=== PATIENT | male | born 1970 | race Caucasian/White ===

== ENCOUNTER 2016-11-15 11:27 | Inpatient (IN) | payer OTHER ==
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
[2016-11-15] MEDS ORDERED: HYDROmorphONE/DILAUDID 1 MG/ML SYR IVP ONE ×4 (12:13→19:38)
[2016-11-15 13:12] LABS: % IMMATURE GRANULYOCYTES 0.3 % (0.0-1.1); ABSOLUTE IMMATURE GRANULOCYTES 0.02 10^3/uL (0.00-0.10); ADD DIFF? NO; ADD MORPH? NO; ADD SCAN? NO; ATYPICAL LYMPHOCYTE FLAG 0 (0-99); FRAGMENT RBC FLAG 0 (0-99); HEMATOCRIT 44.8 % (40.0-51.0); HEMOGLOBIN 14.6 g/dL (13.7-17.5); LEFT SHIFT FLG 10 (0-99); LIPEMIA HEMOLYSIS FLAG 80 (0-99); MEAN CELL HEMOGLOBIN 30.5 pg (27.9-34.1); MEAN CELL HEMOGLOBIN CONCENTR. 32.6 g/dL (32.4-36.7); MEAN CELL VOLUME 93.5 fL (81.5-99.8); MEAN PLATELET VOLUME 10.6 fL (8.7-11.7); PLATELET CLUMPS FLAG 10 (0-99); PLATELET COUNT 288 10^3/uL (150-400); RED BLOOD CELL COUNT 4.79 10^6/uL (4.40-6.38)
[2016-11-15 13:29] LABS: COLOR YELLOW; LEUKOCYTE ESTERASE,URINE NEGATIVE (NEGATIVE); NITRITE,URINE NEGATIVE (NEGATIVE)
[2016-11-15 14:03] LABS: ANION GAP 10 mEq/L (8-16); CALCIUM 8.5 mg/dL (8.5-10.4); CARBON DIOXIDE 27 mEq/l (22-31); CHLORIDE 100 mEq/L (97-110); CREATININE 0.8 mg/dL (0.7-1.3); GLOMERULAR FILTRATION RATE > 60; GLUCOSE 78 mg/dL (70-100); POTASSIUM 4.3 mEq/L (3.5-5.2); SODIUM 137 mEq/L (134-144)
[2016-11-15] MEDS ORDERED: HYDROmorphONE/DILAUDID 1 MG/ML SYR ONE ×3 (15:54→19:40)
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
[2016-11-15] MEDS ORDERED: LORazepam 2 MG/ML INJ IVP PRN (19:34)
[2016-11-15] MEDS ORDERED: ONDANSETRON 4 MG/2 ML VIAL IVP PRN (19:34)
[2016-11-15] MEDS ORDERED: NALOXONE HCL 0.4 MG/ML INJ IVP PRN (19:34)
[2016-11-15] MEDS ORDERED: ONDANSETRON DISINTEGRATING 4 MG TAB PO PRN (19:34)
[2016-11-15] MEDS ORDERED: CYCLOBENZAPRINE 10 MG TAB ONE (19:40)
[2016-11-15] MEDS: APIXABAN 5 MG TAB PO SCH ×2 (19:53)
[2016-11-15] MEDS: oxyCODONE IR 5 MG TAB PO PRN (20:05)
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
[2016-11-15] MEDS: CYCLOBENZAPRINE 10 MG TAB PO PRN (22:30)
[2016-11-15] MEDS: HYDROmorphONE/DILAUDID 1 MG/ML SYR IVP PRN (22:32)
[2016-11-16] MEDS: oxyCODONE IR 5 MG TAB PO PRN ×6 (03:35→23:03)
[2016-11-16] MEDS: APIXABAN 5 MG TAB PO SCH (08:08)
[2016-11-16] MEDS: CYCLOBENZAPRINE 10 MG TAB PO PRN ×2 (08:08→19:51)
[2016-11-16] MEDS: HYDROmorphONE/DILAUDID 1 MG/ML SYR IVP PRN ×5 (08:24→20:58)
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
[2016-11-16] MEDS ORDERED: DIAZEPAM 10 MG TAB PO ONE (09:37)
[2016-11-16] MEDS ORDERED: BISACODYL 10 MG SUPP PR PRN (09:38)
[2016-11-16] MEDS ORDERED: MAGNESIUM HYDROXIDE 30 ML UDCUP PO PRN (09:38)
[2016-11-16] MEDS ORDERED: POLYETHYLENE GLYCOL 3350 17 GM PKT PO PRN (09:38)
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
[2016-11-16] MEDS ORDERED: DIAZEPAM 5 MG TAB PO ONE (10:00)
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
[2016-11-16] MEDS ORDERED: NS 1,000 ML IV SCH (16:30)
[2016-11-16] MEDS ORDERED: DEXMEDETOMIDINE HCL 200 MCG/2 ML VIAL IV ONE (17:43)
[2016-11-16] MEDS ORDERED: PROPOFOL/EMULSION 500 MG/50 ML BOTTLE IV ONE ×3 (17:44→17:50)
[2016-11-16] MEDS ORDERED: PROPOFOL 200 MG/20 ML VIAL ONE (17:50)
[2016-11-16] MEDS ORDERED: HYDROmorphONE/DILAUDID 1 MG/ML SYR ONE (19:17)
[2016-11-16] MEDS: SENNOSIDES/DOCUSATE SODIUM TAB PO SCH (20:56)
[2016-11-17] MEDS: oxyCODONE IR 5 MG TAB PO PRN ×6 (02:18→21:41)
[2016-11-17] MEDS: APIXABAN 5 MG TAB PO SCH (07:50)
[2016-11-17] MEDS: SENNOSIDES/DOCUSATE SODIUM TAB PO SCH ×2 (07:50→20:43)
[2016-11-17] MEDS ORDERED: NICOTINE 21 MG/24 HR PATCH TD ONE (09:49)
[2016-11-17] MEDS: NICOTINE 21 MG/24 HR PATCH TD SCH (10:46)
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
[2016-11-17] MEDS: CYCLOBENZAPRINE 10 MG TAB PO PRN (14:02)
[2016-11-17] MEDS: DIAZEPAM 5 MG TAB PO PRN ×2 (22:43→23:25)
[2016-11-18] MEDS: CYCLOBENZAPRINE 10 MG TAB PO PRN ×2 (05:43→20:57)
[2016-11-18] MEDS: oxyCODONE IR 5 MG TAB PO PRN ×6 (05:43→20:59)
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
[2016-11-18] MEDS: SENNOSIDES/DOCUSATE SODIUM TAB PO SCH ×2 (08:02→21:00)
[2016-11-18] MEDS: APIXABAN 5 MG TAB PO SCH ×2 (08:02→20:57)
[2016-11-18] MEDS: NICOTINE 21 MG/24 HR PATCH TD SCH (08:02)
[2016-11-18] MEDS: DIAZEPAM 5 MG TAB PO PRN (08:48)
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
[2016-11-18] MEDS: oxyCODONE CR 30 MG TAB PO SCH (20:58)
[2016-11-19] MEDS: oxyCODONE IR 5 MG TAB PO PRN ×7 (00:08→21:29)
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
[2016-11-19] MEDS: oxyCODONE CR 30 MG TAB PO SCH ×2 (08:07→21:29)
[2016-11-19] MEDS: CYCLOBENZAPRINE 10 MG TAB PO PRN ×2 (08:07→15:54)
[2016-11-19] MEDS: SENNOSIDES/DOCUSATE SODIUM TAB PO SCH ×2 (08:07→21:30)
[2016-11-19] MEDS: APIXABAN 5 MG TAB PO SCH ×2 (08:07→21:28)
[2016-11-19] MEDS: NICOTINE 21 MG/24 HR PATCH TD SCH (08:08)
[2016-11-19] MEDS ORDERED: PNEUMOCOCCAL 0.5ML VACCINE VIAL IM ONE (09:14)
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
[2016-11-20] MEDS: oxyCODONE IR 5 MG TAB PO PRN ×4 (00:30→10:02)
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
[2016-11-20 08:18] VITALS: BP 143/59; PULSE 83; RESP 18; TEMP 99.1; O2SAT 94
[2016-11-20] MEDS: NICOTINE 21 MG/24 HR PATCH TD SCH (08:32)
[2016-11-20] MEDS: SENNOSIDES/DOCUSATE SODIUM TAB PO SCH (08:33)
[2016-11-20] MEDS: APIXABAN 5 MG TAB PO SCH (08:34)
[2016-11-20] MEDS: oxyCODONE CR 30 MG TAB PO SCH (08:34)
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
--- NOTE | 2016-11-20 09:46 | PDDCSUM ---
Discharge Summary Discharge Summary: #[id number] DERRICK Epperson MD, FACS
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
== END 2016-11-20 10:48 | DRG 552 ==
LOC: F3N 16:26
PROVIDERS: ADMIT Surgery; ATTEND Surgery
DX: S32.15XA Type 2 fracture of sacrum, initial encounter for closed fracture (principal); S33.8XXD Sprain of other parts of lumbar spine and pelvis, subsequent encounter; S22.31XD Fracture of one rib, right side, subsequent encounter for fracture with routine healing; S30.0XXD Contusion of lower back and pelvis, subsequent encounter; G89.11 Acute pain due to trauma; D68.9 Coagulation defect, unspecified; Z79.01 Long term (current) use of anticoagulants; Z86.711 Personal history of pulmonary embolism; Z72.0 Tobacco use; E66.9 Obesity, unspecified
CPT/HCPCS: 92523-GN; 96374; 97116-GP; 97162-GP; 97166-GO; 97530-GP; 97535-GO; G0009; J1170; J2060; J2704

== ENCOUNTER 2016-11-18 13:50 | Inpatient (IN) | payer OTHER ==
[2016-11-20] MEDS ORDERED: ONDANSETRON DISINTEGRATING 4 MG TAB PO PRN (12:25)
[2016-11-20] MEDS ORDERED: DIAZEPAM 5 MG TAB PO PRN (12:25)
[2016-11-20] MEDS: oxyCODONE IR 5 MG TAB PO PRN ×3 (12:58→19:25)
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
[2016-11-20] MEDS: GABAPENTIN 100 MG CAP PO SCH ×3 (16:00→21:34)
--- NOTE | 2016-11-20 17:02 | PDOREHIP ---
Admission [facility] - Admission - 3 Day Assessment Period Admission Date/Day 1: 11/20/16 Day 2: 11/21/16 Day 3: 11/22/16 - Active Diagnoses Comorbidities and Co-existing Conditions at Admission: . None of the Above - Skin Conditions Unhealed Pressure Ulcer (1 or more/Stage 1 or >)-Admission: 0. No
[2016-11-20] MEDS: SENNOSIDES/DOCUSATE SODIUM TAB PO SCH ×2 (21:34→21:41)
[2016-11-20] MEDS: APIXABAN 5 MG TAB PO SCH (21:34)
[2016-11-20] MEDS: oxyCODONE CR 30 MG TAB PO SCH (21:35)
[2016-11-20] MEDS: CYCLOBENZAPRINE 10 MG TAB PO PRN (21:40)
[2016-11-21] MEDS: oxyCODONE IR 5 MG TAB PO PRN ×5 (06:01→19:12)
[2016-11-21] MEDS: GABAPENTIN 100 MG CAP PO SCH ×3 (07:56→21:03)
[2016-11-21] MEDS: SENNOSIDES/DOCUSATE SODIUM TAB PO SCH ×2 (07:56→20:52)
[2016-11-21] MEDS: APIXABAN 5 MG TAB PO SCH ×2 (07:57→20:53)
[2016-11-21] MEDS: oxyCODONE CR 30 MG TAB PO SCH ×2 (07:57→20:53)
[2016-11-21] MEDS: NICOTINE 21 MG/24 HR PATCH TD SCH (07:58)
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
[2016-11-21] MEDS: CYCLOBENZAPRINE 10 MG TAB PO PRN ×2 (09:08→20:53)
[2016-11-22] MEDS: oxyCODONE IR 5 MG TAB PO PRN ×5 (06:17→18:36)
[2016-11-22] MEDS: CYCLOBENZAPRINE 10 MG TAB PO PRN ×2 (06:20→21:11)
[2016-11-22] MEDS: APIXABAN 5 MG TAB PO SCH ×2 (08:26→21:11)
[2016-11-22] MEDS: GABAPENTIN 100 MG CAP PO SCH ×3 (08:26→21:11)
[2016-11-22] MEDS: NICOTINE 21 MG/24 HR PATCH TD SCH (08:26)
[2016-11-22] MEDS: oxyCODONE CR 30 MG TAB PO SCH ×2 (08:27→21:10)
[2016-11-22] MEDS: SENNOSIDES/DOCUSATE SODIUM TAB PO SCH ×2 (08:27→21:11)
[2016-11-22] MEDS: POLYETHYLENE GLYCOL 3350 17 GM PKT PO PRN (11:47)
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
[2016-11-23] MEDS: oxyCODONE IR 5 MG TAB PO PRN ×5 (05:53→21:10)
[2016-11-23] MEDS: NICOTINE 21 MG/24 HR PATCH TD SCH (08:33)
[2016-11-23] MEDS: GABAPENTIN 100 MG CAP PO SCH ×3 (08:34→21:11)
[2016-11-23] MEDS: CYCLOBENZAPRINE 10 MG TAB PO PRN ×2 (08:34→21:09)
[2016-11-23] MEDS: POLYETHYLENE GLYCOL 3350 17 GM PKT PO PRN (08:34)
[2016-11-23] MEDS: oxyCODONE CR 30 MG TAB PO SCH ×2 (08:34→21:11)
[2016-11-23] MEDS: SENNOSIDES/DOCUSATE SODIUM TAB PO SCH ×2 (08:35→21:11)
[2016-11-23] MEDS: APIXABAN 5 MG TAB PO SCH ×2 (08:35→21:12)
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
[2016-11-24] MEDS: oxyCODONE CR 30 MG TAB PO SCH ×2 (09:04→21:04)
[2016-11-24] MEDS: SENNOSIDES/DOCUSATE SODIUM TAB PO SCH ×2 (09:04→20:58)
[2016-11-24] MEDS: APIXABAN 5 MG TAB PO SCH ×2 (09:04→20:58)
[2016-11-24] MEDS: GABAPENTIN 100 MG CAP PO SCH ×3 (09:04→20:57)
[2016-11-24] MEDS: NICOTINE 21 MG/24 HR PATCH TD SCH (09:04)
[2016-11-24] MEDS: oxyCODONE IR 5 MG TAB PO PRN ×4 (11:06→20:58)
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
[2016-11-25] MEDS: oxyCODONE IR 5 MG TAB PO PRN ×5 (05:07→20:43)
[2016-11-25] MEDS: SENNOSIDES/DOCUSATE SODIUM TAB PO SCH ×2 (08:27→20:43)
[2016-11-25] MEDS: APIXABAN 5 MG TAB PO SCH ×2 (08:28→20:43)
[2016-11-25] MEDS: oxyCODONE CR 30 MG TAB PO SCH ×2 (08:28→20:43)
[2016-11-25] MEDS: GABAPENTIN 100 MG CAP PO SCH ×3 (08:28→20:43)
[2016-11-25] MEDS: NICOTINE 21 MG/24 HR PATCH TD SCH (08:34)
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
[2016-11-25] MEDS: CYCLOBENZAPRINE 10 MG TAB PO PRN (20:43)
[2016-11-26] MEDS: oxyCODONE IR 5 MG TAB PO PRN ×2 (05:58→10:04)
[2016-11-26] MEDS: CYCLOBENZAPRINE 10 MG TAB PO PRN (05:59)
[2016-11-26 06:04] VITALS: BP 114/66; PULSE 68; RESP 16; TEMP 98.1; O2SAT 93
[2016-11-26] MEDS: APIXABAN 5 MG TAB PO SCH (08:15)
[2016-11-26] MEDS: NICOTINE 21 MG/24 HR PATCH TD SCH (08:15)
[2016-11-26] MEDS: GABAPENTIN 100 MG CAP PO SCH (08:15)
[2016-11-26] MEDS: SENNOSIDES/DOCUSATE SODIUM TAB PO SCH (08:16)
[2016-11-26] MEDS: oxyCODONE CR 30 MG TAB PO SCH (08:16)
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
--- NOTE | 2016-11-28 16:41 | PDOREHIP ---
Admission [facility] - Admission - 3 Day Assessment Period Admission Date/Day 1: 11/20/16 Day 2: 11/21/16 Day 3: 11/22/16 Discharge [facility] - Discharge - 3 Day Assessment Period 2 Days Prior to Anticipated Discharge Date: 11/24/16 1 Day Prior to Anticipated Discharge Date: 11/25/16 Anticipated Discharge Date: 11/26/16 - Discharge Skin Conditions Unhealed Pressure Ulcer (1 or more/Stage 1 or >)-Discharge: 0. No
== END 2016-11-26 11:45 | disposition home or self-care (01) | DRG 560 ==
LOC: BREH 11-20 11:20
PROVIDERS: ADMIT Internal Medicine; ATTEND Internal Medicine
PROC: F07Z8FZ Transfer Training Treatment using Assistive, Adaptive, Supportive or Protective Equipment (ICD-10-PCS; principal; 2016-11-20)
PROC: F08Z0FZ Bathing/Showering Techniques Treatment using Assistive, Adaptive, Supportive or Protective Equipment (ICD-10-PCS; principal; 2016-11-20)
PROC: F07Z5FZ Bed Mobility Treatment using Assistive, Adaptive, Supportive or Protective Equipment (ICD-10-PCS; principal; 2016-11-20)
PROC: F08Z4FZ Home Management Treatment using Assistive, Adaptive, Supportive or Protective Equipment (ICD-10-PCS; principal; 2016-11-20)
PROC: F08Z1FZ Dressing Techniques Treatment using Assistive, Adaptive, Supportive or Protective Equipment (ICD-10-PCS; principal; 2016-11-20)
DX: S32.111D Minimally displaced Zone I fracture of sacrum, subsequent encounter for fracture with routine healing (principal); S22.42XD Multiple fractures of ribs, left side, subsequent encounter for fracture with routine healing; S33.4XXD Traumatic rupture of symphysis pubis, subsequent encounter; J90 Pleural effusion, not elsewhere classified; K59.03 Drug induced constipation; T40.2X5A Adverse effect of other opioids, initial encounter; E72.12 Methylenetetrahydrofolate reductase deficiency; V86.59XD Driver of other special all-terrain or other off-road motor vehicle injured in nontraffic accident, subsequent encounter; Z86.711 Personal history of pulmonary embolism
CPT/HCPCS: 97110-GO; 97110-GP; 97116-GP; 97161-GP; 97165-GO; 97530-GO; 97530-GP; 97535-GO; 97542-GP

== ENCOUNTER 2018-06-17 13:05 | Emergency (ER) | payer OTHER ==
[2018-06-17] MEDS ORDERED: PROPARACAINE 0.5% 15 ML OPHT DROP ONE (14:12)
[2018-06-17] MEDS ORDERED: FLUORESCEIN SODIUM 1 MG STRIP OP ONE (14:13)
[2018-06-17] MEDS ORDERED: OFLOXACIN 0.3% SOLN PREPACK OPHT.BTL TAKEHOME ONE (14:27)
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
[2018-06-17 15:06] VITALS: BP 138/77
== END 2018-06-17 15:05 | disposition home or self-care (01) ==
PROC: 08C9XZZ Extirpation of Matter from Left Cornea, External Approach (ICD-10-PCS; principal; 2018-06-17)
DX: T15.02XA Foreign body in cornea, left eye, initial encounter (principal); Y99.0 Civilian activity done for income or pay